=== PATIENT | female | born 1935 | race Caucasian/White ===

== ENCOUNTER 2025-02-17 15:09 | Observation (INO) | payer MEDICARE, OTHER ==
[2025-02-17] MEDS: Meclizine 25 MG Tab PO ONE (15:47)
[2025-02-17 15:48] LABS: HEMATOCRIT 42.4 % (34.2-48.2); HEMOGLOBIN 14.6 g/dL (11.4-15.5); MEAN CORPUSCULAR HEMOGLOBIN 31.8 pg (23.9-33.9); MEAN CORPUSCULAR HGB CONC 34.3 g/dL (31.9-34.8); MEAN CORPUSCULAR VOLUME 92.7 fL (76.7-100.5); MEAN PLATELET VOLUME 7.5 fL (7.1-12.4); PLATELET COUNT,PLT 308 x10(3)uL (151-488); RED BLOOD CELL COUNT 4.58 x10(6)uL (3.60-5.20); RED CELL DISTRIBUTION WIDTH 13.4 % (12.3-16.5); WHITE BLOOD CELL COUNT,WBC 15.2 x10-3/uL (3.0-10.3)
[2025-02-17 15:51] LABS: BLOOD UREA NITROGEN,BUN 28 mg/dL (7-18); CALCIUM 8.6 mg/dL (8.6-10.2); CARBON DIOXIDE,CO2 28 mmol/L (21-32); CHLORIDE,CL 103 mmol/L (100-110); ESTIMATED GFR 54 mL/min (>60); GLUCOSE RANDOM 136 mg/dL (80-116); POTASSIUM,K 3.9 mmol/L (3.5-5.3); SODIUM,NA 138 mmol/L (135-145)
[2025-02-17 15:57] LABS: A/G RATIO 0.8; ALANINE AMINOTRANSFERASE,ALT 44 U/L (12-36); ALBUMIN 3.2 g/dL (3.2-4.6); ALKALINE PHOSPHATASE 97 IU/L (56-112); ASPARTATE AMNIOTRANSFERASE,AST 33 IU/L (5-25); BILIRUBIN TOTAL 0.5 mg/dL (0.1-1.3)
[2025-02-17 16:21] LABS: EOSINOPHILS PERCENT MAN 3 % (0-5); LYMPHOCYTES PERCENT MAN 5 % (13-37); MONOCYTES PERCENT MAN 18 % (4-12); SEG NEUTROPHILS PERCENT MAN 74 % (46-82)
[2025-02-17] MEDS: LORazepam 2 MG/ML SDV IVPUSH ONE (16:57)
[2025-02-17 17:03] LABS: BILIRUBIN,URINE NEGATIVE (NEGATIVE); GLUCOSE,URINE NORMAL (NORMAL); KETONES,URINE NEGATIVE (NEGATIVE); LEUKOCYTE ESTERASE,URINE NEGATIVE (NEGATIVE); NITRITE,URINE NEGATIVE (NEGATIVE); OCCULT BLOOD,URINE NEGATIVE (NEGATIVE); PROTEIN,URINE NEGATIVE (NEGATIVE); UROBILINOGEN,URINE NORMAL (NEGATIVE)
[2025-02-17 17:05] LABS: APPEARANCE,URINE CLEAR (CLEAR); COLOR,URINE YELLOW (YELLOW)
[2025-02-18] MEDS: Sodium Chloride 0.9% 10 ML Syringe FLUSH PRN (02:58)
[2025-02-18] MEDS: Ondansetron 4 MG/2 ML SDV IVPUSH PRN (02:58)
[2025-02-18] MEDS: Iopamidol 755 Mg/ML 100 ML Bottle IV SCH (08:59)
[2025-02-18] MEDS ORDERED: Non-Formulary Medication 1 Each (Simvastatin [Zocor] 40 MG Tablet) PO SCH (10:30)
[2025-02-18] MEDS: Aspirin 325 MG Tab.EC PO SCH (11:06)
[2025-02-18 12:12] VITALS: BP 124/43; PULSE 98
== END 2025-02-18 13:30 ==
LOC: FB.ED 15:09 → FB.MS 17:37
PROVIDERS: ADMIT Family Medicine; ATTEND Family Medicine
DX: I77.74 Dissection of vertebral artery (principal); J39.2 Other diseases of pharynx; R59.0 Localized enlarged lymph nodes; R42 Dizziness and giddiness; E03.9 Hypothyroidism, unspecified; I10 Essential (primary) hypertension; E78.00 Pure hypercholesterolemia, unspecified; R06.02 Shortness of breath; J44.9 Chronic obstructive pulmonary disease, unspecified; F17.200 Nicotine dependence, unspecified, uncomplicated; Z79.82 Long term (current) use of aspirin; Z79.899 Other long term (current) drug therapy
CPT/HCPCS: 36415; 70450; 70496; 70498; 80053; 81003; 84484; 85025; 93005; 96374; 96375; 99285; A9270; G0378; J2060; J2405; Q9967; 99222; 99238